=== PATIENT | male | born 1960 | race Two or more races ===

== ENCOUNTER 2019-03-05 11:04 | Emergency (ER) | payer OTHER ==
[~2019-03-05] VITALS: Ht 165.1 cm; Wt 81.6 kg
[~2019-03-05 11:04] MED LIST: CARDIZEM90 MG; IMODIUM A-D2 MG PO; LEVSIN/SL0.125 MG SL; LOSARTAN-HCTZ1 EAC1; PEPCID40 MG PO; ZETIA10 MG; ZOFRAN4 MG PO; [UNRECOGNIZED DRUG - OTHER]
== END 2019-03-05 12:58 | disposition home or self-care (01) ==
LOC: ER 11:04
DX: S01.02XA Laceration with foreign body of scalp, initial encounter (principal); W45.8XXA Other foreign body or object entering through skin, initial encounter; Y93.89 Activity, other specified; Y92.89 Other specified places as the place of occurrence of the external cause; Y99.8 Other external cause status

== ENCOUNTER 2019-03-15 10:20 | Emergency (ER) | payer OTHER ==
[~2019-03-15] VITALS: Ht 165.1 cm; Wt 82.6 kg
== END 2019-03-15 12:38 | disposition home or self-care (01) ==
LOC: ER 10:20
DX: Z48.02 Encounter for removal of sutures (principal)

== ENCOUNTER 2019-04-18 10:27 | Outpatient (CLI) | payer OTHER | END 2019-04-18 10:32 | disposition home or self-care (01) | LOC: RAD 10:27 | DX: M15.8 Other polyosteoarthritis (principal) ==